=== PATIENT | male | born 1980 | race Caucasian/White ===

== ENCOUNTER 2016-10-24 15:13 | Emergency (ER) | payer MEDICAID ==
[~2016-10-24] VITALS: Ht 175.3 cm; Wt 116.0 kg
[2016-10-24 15:25] VITALS: Ht 175.3 cm; Wt 116.0 kg
--- NOTE | 2016-10-24 18:27 | RADRPT ---
PROCEDURE: CT Neck noncontrast CLINICAL INDICATION: Foreign body. Fish bone. TECHNIQUE: Noncontrast CT of the neck was performed. Axial images were obtained through the neck w ith multiplanar reformatted images generated from the axial acquired data. The administered radiatio n dose was CTDI vol = 23.4 mGy, DLP = 560.64 mGy-cm. One or more of the following dose reduction te chniques were used: Automated exposure control, Adjustment of the mA and/or kV according to patient size, or Use of iterative reconstruction technique. COMPARISON: There are no similar studies submitted for comparison. FINDINGS: Evaluation is limited without intravenous contrast. SKULL: The visualized portions of the brain are grossly unremarkable.The visualized orbits are unrem arkable. There is mild bilateral maxillary sinus mucosal thickening. The bilateral mastoid air cell s are within normal limits. PAROTID GLANDS: Unremarkable on this unenhanced examination. SUBMANDIBULAR GLANDS: Unremarkable on this unenhanced examination. THYROID GLAND: Unremarkable on this unenhanced examination. VASCULATURE: Evaluation is limited without intravenous contrast. LYMPH NODES: Multiple small lymph nodes are identified in the neck in levels I-V which are not patho logically enlarged. The lymph nodes are relatively bilateral and symmetric in distribution. AERODIGESTIVE TRACT: There is streak artifact from dental hardware limiting evaluation of the oral c avity. No radiopaque density is noted within the aerodigestive tract to suggest foreign body. Evalu ation for primary aerodigestive tract lesion is limited without contrast. There is no definite evid ence of aerodigestive tract effacement.There are coarse calcifications within the bilateral palatine tonsils suggesting prior infectious/inflammatory etiologies. LUNGS: The lung apices are unremarkable. OSSEOUS STRUCTURES: No destructive lytic or blastic osseous lesion is identified.There is straighten ing of the normal cervical lordosis. IMPRESSION: 1. No radiopaque density noted within the aerodigestive tract to suggest foreign body. 2. No definite mass or fluid collection given limitations. 3. No cervical adenopathy. Further findings as detailed above. RPTAT: PP .Brian Frye MD, MD Date Time Electronically viewed and signed by .Brian Frye MD, MD on 10/24/2016 18:27 .F/
[2016-10-24] MEDS ORDERED: ACET1TAB40 PO (18:45)
--- NOTE | 2016-10-24 18:54 | ERD ---
ER Documentation Chief Complaint Date/Time DATE: 10/24/16 TIME: 18:49 Chief Complaint FOREIGN OBJECT ( FISH BONE STUCK @ PT'S THROAT) HPI This 28-year-old male complains of a foreign body sensation after eating fish today. He feels like there is a bone stuck in his throat. He is able to tolerate p.o.'s but has pain with swallowing. Denies any blood, fevers, vomiting, shortness of breath ROS All systems reviewed and are negative except as per history of present illness. Medications Home Meds Active Scripts Acetaminophen with Codeine (Acetaminophen-Cod #3 Tablet) 1 Each Tablet, 1 TAB PO Q6H Y for PAIN, #10 TAB Prov:NORMA HANLEY MD 10/24/16 PMhx/Soc Medical and Surgical Hx: pt denies Medical Hx, pt denies Surgical Hx Hx Alcohol Use: No Hx Substance Use: No Hx Tobacco Use: No Physical Exam Vitals Vital Signs Date Time Temp Pulse Resp B/P Pulse Ox O2 Delivery O2 Flow Rate FiO2 10/24/16 15:25 98.3 114 19 176/98 97 Physical Exam Const: [] Alert, [id number] Head: Atraumatic Eyes: Normal Conjunctiva ENT: Normal External Ears, Nose and Mouth. Oropharynx appears normal. Patient complains of a foreign body sensation points to the area of the thyroid cartilage. There is no external lesions, crepitance, tenderness. Neck: Full range of motion..~ No meningismus. Resp: Clear to auscultation bilaterally Cardio: Regular rate and rhythm, no murmurs Abd: Soft, non tender, non distended. Normal bowel sounds Skin: No petechiae or rashes Back: No midline or flank tenderness Ext: No cyanosis, or edema Neur: Awake and alert Psych: Normal Mood and Affect Procedures/MDM CT of the neck soft tissue shows no evidence of radiopaque foreign body in no acute abnormalities from the radiologist Patient presents with foreign body sensation after eating fish today. He may have a pharyngeal abrasion. There is no current evidence to suggest radiopaque foreign body, abscess, airway obstruction. We discharged home with a short course of Tylenol 3, instructions for bland diet and clear fluids and further observation at home. He should return for blood, fevers, vomiting, new worsening symptoms or primary care doctor this week. The patient was stable with no new complaints during the ER course. Clinically, there is no current evidence to suggest meningitis, sepsis, acute abdomen, pneumonia, acute coronary syndrome, pulmonary embolism, or any other emergent condition appearing to require further evaluation or hospitalization. The patient should certainly return for any new or worsening symptoms per the aftercare instructions. They should otherwise follow-up with her primary care doctor for reevaluation this week. Departure Diagnosis: Primary Impression: Abrasion of pharynx Encounter type: initial encounter Qualified Code: S10.11XA - Abrasion of pharynx, initial encounter Condition: Stable Patient Instructions: Pharyngeal Abrasion Additional Instructions: CT scan normal today. Recheck for fevers, vomiting, new symptoms. NORMA HANLEY MD Oct 24, 2016 18:54
[2016-10-24 19:09] VITALS: BP 132/78; PULSE 68; RESP 16; TEMP 98.3
== END 2016-10-24 19:11 | disposition home or self-care (01) ==
LOC: FTE 15:13
DX: S10.11XA Abrasion of throat, initial encounter (principal); X58.XXXA Exposure to other specified factors, initial encounter; Y92.9 Unspecified place or not applicable
CPT/HCPCS: 70490; Z7502